=== PATIENT | female | born 1950 | race Caucasian/White ===

== ENCOUNTER 2018-05-25 18:56 | Emergency (ER) | payer MEDICARE, MEDICAID ==
[~2018-05-25] VITALS: Ht 152.4 cm; Wt 81.8 kg
[~2018-05-25 18:56] MED LIST: LACT1CAP65 PO; LISI-600 PO; METO50TA16 PO
[2018-05-25 19:46] LABS: BASOPHILS % (AUTO) 0.3 % (0-1); EOSINOPHILS # (AUTO) 0.2 X10'3 (0-0.9); EOSINOPHILS % (AUTO) 2.1 % (0-6); HEMATOCRIT 40.7 % (35.0-45.0); HEMOGLOBIN 13.6 g/dl (12.0-16.0); LYMPHOCYTES # (AUTO) 2.7 X10'3 (1.1-4.8); LYMPHOCYTES % (AUTO) 28.5 % (21-51); MEAN CORPUSCULAR HEMOGLOBIN 29.3 PG (27.0-31.0); MEAN CORPUSCULAR HGB CONC 33.3 % (33.0-36.5); MEAN CORPUSCULAR VOLUME 87.9 FL (78-98); MEAN PLATELET VOLUME 7.2 FL (7.4-10.4); MONOCYTES # (AUTO) 0.5 X10'3 (0-0.9); MONOCYTES % (AUTO) 5.8 % (2-12); NEUTROPHILS # (AUTO) 5.9 X10'3 (1.8-7.7); NEUTROPHILS % (AUTO) 63.3 % (42-75); PLATELET COUNT 380 X10'3 (140-440); RED BLOOD COUNT 4.63 X10'6 (4.20-5.60); RED CELL DISTRIBUTION WIDTH 13.8 % (11.5-14.5); WHITE BLOOD COUNT 9.4 X10'3 (4.5-11.0)
[2018-05-25 19:57] LABS: INR 0.9 INR; PARTIAL THROMBOPLASTIN TIME 34 SECONDS (22-32); PROTHROMBIN TIME 9.5 SECONDS (9.0-12.0)
[2018-05-25 20:03] LABS: ALANINE AMINOTRANSFERASE 25 U/L (12-78); ALBUMIN 3.6 G/DL (3.4-5.0); ALBUMIN/GLOBULIN RATIO 0.7 (1.1-1.5); ALKALINE PHOSPHATASE 123 IU/L (46-116); ANION GAP 8 (8-16); ASPARTATE AMINO TRANSFERASE 15 U/L (10-37); BILIRUBIN,TOTAL 0.6 MG/DL (0.1-1.0); BLOOD UREA NITROGEN 13 MG/DL (7-18); BUN/CREATININE RATIO 16.5 (6.6-38.0); CALCIUM 9.4 MG/DL (8.5-10.1); CHLORIDE 102 MMOL/L (99-107); CREATININE 0.79 MG/DL (0.40-0.90); GLUCOSE 106 MG/DL (70-104); POTASSIUM 3.8 MMOL/L (3.5-5.1); SODIUM 139 MMOL/L (135-145); TOTAL CARBON DIOXIDE 28.9 MMOL/L (24-32); TOTAL PROTEIN 8.8 G/DL (6.4-8.2); eGFR 73 ML/MIN
[2018-05-25 21:25] VITALS: BP 132/88
[2018-05-25] MEDS ORDERED: HYDROcodone/acetaminophen 10/325mg tab PO ONE (21:30)
[2018-05-25] MEDS ORDERED: IBUP-1986 PO (21:50)
[2018-05-25] MEDS ORDERED: HYDR-4383 PO (21:50)
== END 2018-05-25 22:03 | disposition home or self-care (01) ==
LOC: ER 18:56
DX: R07.89 Other chest pain (principal); R06.02 Shortness of breath; R05 Cough; J45.909 Unspecified asthma, uncomplicated; Z98.890 Other specified postprocedural states; Z87.891 Personal history of nicotine dependence; Z88.0 Allergy status to penicillin; Z88.1 Allergy status to other antibiotic agents; Z79.899 Other long term (current) drug therapy
CPT/HCPCS: 36415; 71046; 80053; 83605; 84145; 84484; 85025; 85610; 85730; 87040; 93005; 99285

== ENCOUNTER 2019-10-14 13:28 | Emergency (ER) | payer BC, MEDICAID ==
[~2019-10-14] VITALS: Ht 152.4 cm; Wt 88.0 kg
[~2019-10-14 13:28] MED LIST changes: +HYDR-4383 PO; +IBUP-1986 PO
[2019-10-14 14:25] LABS: BASOPHILS # (AUTO) 0.1 X10'3 (0-0.2); BASOPHILS % (AUTO) 0.6 % (0-1); EOSINOPHILS # (AUTO) 0.2 X10'3 (0-0.9); EOSINOPHILS % (AUTO) 1.5 % (0-6); HEMATOCRIT 40.2 % (35.0-45.0); HEMOGLOBIN 13.7 g/dl (12.0-16.0); LYMPHOCYTES # (AUTO) 2.4 X10'3 (1.1-4.8); MEAN CORPUSCULAR HEMOGLOBIN 29.7 PG (27.0-31.0); MEAN CORPUSCULAR HGB CONC 33.9 g/dL (33.0-36.5); MEAN CORPUSCULAR VOLUME 87.4 FL (78-98); MEAN PLATELET VOLUME 7.2 FL (7.4-10.4); MONOCYTES # (AUTO) 0.8 X10'3 (0-0.9); MONOCYTES % (AUTO) 6.2 % (2-12); NEUTROPHILS # (AUTO) 9.3 X10'3 (1.8-7.7); NEUTROPHILS % (AUTO) 72.7 % (42-75); PLATELET COUNT 367 X10'3 (140-440); RED CELL DISTRIBUTION WIDTH 13.7 % (11.5-14.5); WHITE BLOOD COUNT 12.8 X10'3 (4.5-11.0)
[2019-10-14 14:46] LABS: ALANINE AMINOTRANSFERASE 23 U/L (12-78); ALBUMIN 3.8 G/DL (3.4-5.0); ALBUMIN/GLOBULIN RATIO 0.7 (1.1-1.5); ALKALINE PHOSPHATASE 142 IU/L (46-116); AMYLASE 61 U/L (25-115); ANION GAP 9 (8-16); ASPARTATE AMINO TRANSFERASE 19 U/L (10-37); BILIRUBIN,TOTAL 0.5 MG/DL (0.1-1.0); BLOOD UREA NITROGEN 13 MG/DL (7-18); CALCIUM 9.6 MG/DL (8.5-10.1); CHLORIDE 103 MMOL/L (99-107); CREATININE 0.81 MG/DL (0.40-0.90); GLUCOSE 99 MG/DL (70-104); LIPASE 128 U/L (73-393); POTASSIUM 3.6 MMOL/L (3.5-5.1); SODIUM 140 MMOL/L (135-145); TOTAL PROTEIN 9.1 G/DL (6.4-8.2); eGFR 71 ML/MIN
[2019-10-14 15:59] LABS: URINE HCG NEGATIVE (NEG)
[2019-10-14 16:09] LABS: CLARITY,URINE SLIGHTLY CLOUDY (Clear); COLOR,URINE STRAW (Yellow); GLUCOSE, URINE NEGATIVE (Neg); KETONES,URINE NEGATIVE (Neg); LEUKOCYTE ESTERASE ,URINE NEGATIVE (Neg); NITRITES, URINE POSITIVE (Neg); OCCULT BLOOD,URINE TRACE-INTACT (Neg); PH,URINE 5.5 (4.8-8.0); PROTEIN,URINE 100 mg/dl (Neg); UA COLLECTION TYPE CLN CATCH MIDSTREAM; UROBILINOGEN,URINE 0.2 E.U/dL (0.2-1.0)
[2019-10-14 16:17] LABS: MUCUS STRANDS FEW /LPF (Neg); SQUAMOUS EPITHELIAL CELL,UR MANY /LPF (FEW)
[2019-10-14 16:20] LABS: BACTERIA,URINE 4+ /HPF (Neg); RBC,URINE 0-2 /HPF (0-2)
[2019-10-14] MEDS ORDERED: NITR100C6 PO (16:27)
[2019-10-14] MEDS ORDERED: ACET-3067 PO (16:32)
[2019-10-14 16:48] VITALS: BP 168/84
[2019-10-17] MEDS ORDERED: LOSA100T57 PO (12:01)
[2019-10-17] MEDS ORDERED: ATOR20TA66 PO (12:01)
[2019-10-17] MEDS ORDERED: AMLO10TA13 PO (12:01)
== END 2019-10-14 16:43 | disposition home or self-care (01) ==
LOC: ER 13:28
DX: N39.0 Urinary tract infection, site not specified (principal); J45.909 Unspecified asthma, uncomplicated; Z88.1 Allergy status to other antibiotic agents; Z86.19 Personal history of other infectious and parasitic diseases; Z88.0 Allergy status to penicillin; Z79.899 Other long term (current) drug therapy
CPT/HCPCS: 36415; 74176; 80053; 81001; 81025; 82150; 83690; 85025; 99284

== ENCOUNTER 2025-02-09 00:26 | Emergency (ER) | payer BC, MEDICAID ==
[~2025-02-09] VITALS: Ht 152.4 cm; Wt 84.8 kg
[~2025-02-09 00:26] MED LIST changes: +ALBU18HF2 IH; +ALBU90AE3; +EMPA10TA PO; -HYDR-4383 PO; -IBUP-1986 PO; +LACT1CAP26 PO; -LACT1CAP65 PO; -LISI-600 PO; +LOSA50TA64 PO; -METO50TA16 PO
--- NOTE | 2025-02-09 00:41 | Physician Documentation ---
History of Present Illness Chief Complaint: Abdominal Pain Stated Complaint: LUQ PAIN Time Seen by MD: 00:41 Primary Medical Doctor: OLI VILLALBA 74-year-old female who presents with left upper quadrant pain. The patient is a very difficult historian. She frequently starts telling me about events that happened over 1 year ago. With frequent redirection, she tells me that she is here today because of pain in her left upper abdomen. She tells me she was recently in the hospital for this, although she says they did not do anything for me, and so she does not really know why she was in the hospital or why she is having pain. She tells me that the nurses at her facility only give her pain medicine every 4 hours, and that it is not controlling her pain. She denies any fevers or chills. No vomiting. No diarrhea. No dysuria. She otherwise is a very challenging historian. Medication Reconciliation Allergies: Coded Allergies: Penicillins (Verified Allergy, Unknown, swell tongue, 02/09/25) ampicillin (Verified Allergy, Unknown, swollen eyes, 02/09/25) Scheduled Albuterol Sulfate (Ventolin Hfa), 2 PUFFS IH 5XD, (Reported) Empagliflozin (Jardiance), 1 TAB PO DAILY, (Reported) Lactobacillus Rhamnosus (Culturelle), 1 EACH PO Q12H, (Reported) Losartan Potassium (Losartan Potassium), 50 MG PO DAILY Miscellaneous Medications Albuterol Sulfate (Proair Digihaler), 1, (Reported) Discontinued Medications Losartan Potassium (Losartan Potassium), 100 MG PO DAILY, (Reported) Past Medical History Past Medical History: Asthma, COPD, Pneumonia, Hepatitis C Past Surgical History: abdominal surgery, Patient History: FH: chronic kidney disease MOTHER GRANDFATHER OR GRANDMOTHER FH: kidney cancer CHILD Alcohol Use: None Drug Use: none Lives with: Spouse Lives In: Home Occupation: employed Review of Systems Constitutional: Denies: fever Gastrointestinal: Reports: abdominal pain; Denies: vomiting, diarrhea Physical Exam Vital Signs: Temperature: 98.2, Source: Oral, Heart Rate: 111, Respiratory Rate: 18, BP: 162/94, Pulse Oximetry: 96, Weight: 84.750 Oxygen Flow Rate: 2.0 Physical Exam General: This is an older female lying quietly in bed, not in distress HEENT: Atraumatic, oropharynx is moist Heart: Mild tachycardic, appears regular Lungs: normal work of breathing, normal oxygen saturation on room air Abdomen: Extremities: Warm and well-perfused Neuro: Alert and oriented, no focal deficits Psychiatric: Calm and cooperative with exam Progress Results/Orders Results/Orders Vital Signs 02/09/25 02/09/25 00:28 00:33 Temp 98.2 Pulse 111 Resp 16 18 B/P (MAP) 162/94 Pulse Ox 96 O2 Flow Rate 2.0 Medical Decision Making Additional info obtained from: old records Findings I reviewed past records, which show that the patient has recently admitted to the hospital with a large abdominal wall hematoma and possible pneumonia. She was evaluated by a surgeon who recommended no acute intervention. She did have anemia and required a blood transfusion. Additional Comments The patient presents with ongoing pain in her left upper abdomen. On chart review she has a known abdominal wall hematoma in this area. Her lab work today shows no worsening anemia or other acute abnormality. Overall, her pain seems consistent with her previously known hematoma. I doubt a new or more dangerous process. Her main issue seems to be pain control, because her facility is not giving her pain medications as scheduled. She will be discharged back to her facility, with instructions to treat her pain as instructed. She can follow up as an outpatient. Departure Time of Disposition: 02:06 Disposition: [facility] Impression: Primary Impression: Rectus sheath hematoma Condition: Stable Referrals: NO PRIMARY CARE PROVIDER (PCP) Education Educated: Patient Educated regarding: diagnosis, treatment Signature Scribe Signature: na Attestation: LORRAINE Hernandez MD Feb 09, 2025 00:41
[2025-02-09 01:11] LABS: MEAN PLATELET VOLUME 6.4 FL (7.4-10.4); RED CELL DISTRIBUTION WIDTH 16.3 % (11.5-14.5)
[2025-02-09 01:25] LABS: CREATININE 1.11 MG/DL (0.40-0.90); TOTAL CARBON DIOXIDE 26.3 MMOL/L (24-32); eCRCL 33 ML/MIN; eGFR 48 ML/MIN
[2025-02-09 02:21] VITALS: BP 134/80; PULSE 80; RESP 18; TEMP 98; O2SAT 99
== END 2025-02-09 02:48 | disposition home or self-care (01) ==
LOC: ER 00:27
DX: S30.1XXA Contusion of abdominal wall, initial encounter (principal); J44.9 Chronic obstructive pulmonary disease, unspecified; Z88.0 Allergy status to penicillin; X58.XXXA Exposure to other specified factors, initial encounter; Y93.89 Activity, other specified; Y92.89 Other specified places as the place of occurrence of the external cause; Y99.8 Other external cause status
CPT/HCPCS: 36415; 80053; 83690; 85025; 99284